=== PATIENT | female | born 1945 | race Caucasian/White ===

== ENCOUNTER 2019-12-25 14:53 | Emergency (ER) | payer MEDICARE ==
[~2019-12-25] VITALS: Wt 95.3 kg
[~2019-12-25 14:53] MED LIST: AMLODIPINE5 MG PO; ANCEF1 GM/50 ML IV; ASPIRIN FOR CHI81 MG PO; CALCIUM500 MG PO; CO-Q-10 200 MG-1 SGL PO; FISH OIL; KLOR-CON20 MEQ PO; LOSARTAN POTAS100 M1 PO; METOPROLOL SR100 MG PO; MULTIPLE VITAMI1 CAP PO; PERCOCET 325 MG1 TA6 PO; STOOL SOFTENER100 M1 PO; SYNTHROID,LEVO50 MCG PO; XARELTO10 PO
[2019-12-25 15:04] VITALS: BP 130/66
== END 2019-12-25 18:10 | disposition home or self-care (01) ==
LOC: ED 14:53
DX: M79.604 Pain in right leg (principal); Z88.8 Allergy status to other drugs, medicaments and biological substances; Z79.899 Other long term (current) drug therapy; Z79.82 Long term (current) use of aspirin

== ENCOUNTER → 2022-09-19 | Outpatient (CLI) | payer MEDICARE ==
[~2022-09-19] MED LIST changes: +ASPIRIN ADULT L81 M2 PO; +ATORVASTATIN CA20 M1 PO; +CELECOXIB200 M1 PO; +HYDROCODONE-AC1 EAC1 PO; +LETROZOLE2.5 M2 PO; +VITAMIN D350 MCG PO
== END | disposition home or self-care (01) ==
LOC: ORTHO 01:46
PROVIDERS: ATTEND Orthopaedic Surgery
DX: S72.032A Displaced midcervical fracture of left femur, initial encounter for closed fracture (principal); R60.9 Edema, unspecified; X58.XXXA Exposure to other specified factors, initial encounter; Y93.89 Activity, other specified; Y92.89 Other specified places as the place of occurrence of the external cause; Y99.8 Other external cause status

== ENCOUNTER → 2022-11-07 | Outpatient (CLI) | payer MEDICARE | END | disposition home or self-care (01) | LOC: ORTHO 00:21 | PROVIDERS: ATTEND Orthopaedic Surgery | DX: S72.032A Displaced midcervical fracture of left femur, initial encounter for closed fracture (principal); X58.XXXA Exposure to other specified factors, initial encounter; Y93.89 Activity, other specified; Y92.89 Other specified places as the place of occurrence of the external cause; Y99.8 Other external cause status ==